=== PATIENT | female | born 1980 ===

== ENCOUNTER 2016-11-30 14:49 | Emergency (ER) | payer MEDICAID ==
[~2016-11-30] VITALS: Ht 152.4 cm; Wt 94.8 kg
[2016-11-30] MEDS ORDERED: DOCUSATE SODIUM 100 MG/10 ML LIQUID UDC OT ONE (15:45)
[2016-11-30] MEDS ORDERED: DOCUSATE SODIUM 100 MG/10 ML LIQUID UDC ONE (15:56)
--- NOTE | 2016-11-30 16:14 | NUR ---
MSE COMPLETED, CERUMEN PLUGS REMOVED FROM BOTH EARS. PT WAS THEN D/C'D HOME, ACI GIVEN, PT AMBULATED W/O DIFF/TOOK ALL BELONGINGS.
[2016-11-30 16:17] VITALS: BP 108/78
== END 2016-11-30 16:17 | disposition home or self-care (01) ==
LOC: ER 14:55
DX: H61.23 Impacted cerumen, bilateral (principal)
CPT/HCPCS: A4663

== ENCOUNTER 2018-09-14 08:56 | Emergency (ER) | payer MEDICAID ==
[~2018-09-14] VITALS: Ht 157.5 cm; Wt 102.5 kg
--- NOTE | 2018-09-14 10:07 | NUR ---
Patient discharged to home in stable conditon & brisk steady gait. Written and verbal after care instructions given to patient with [employer] building and construction manager ID# [id number]. Patient verbalizes understanding of instructions.
== END 2018-09-14 10:09 | disposition home or self-care (01) ==
LOC: ER 08:56
DX: B36.9 Superficial mycosis, unspecified (principal); H62.43 Otitis externa in other diseases classified elsewhere, bilateral
CPT/HCPCS: A4663